=== PATIENT | male | born 1995 | race Caucasian/White ===

== ENCOUNTER 2021-05-04 17:43 | Emergency (ER) | payer SELFPAY | END 2021-05-04 20:15 | disposition home or self-care (01) | LOC: BURERS 17:43 | DX: J02.9 Acute pharyngitis, unspecified (principal); Z20.822 Contact with and (suspected) exposure to COVID-19; F17.290 Nicotine dependence, other tobacco product, uncomplicated | CPT/HCPCS: 87081; 87430; 87804; 99283 ==